=== PATIENT | female | born 1985 | race Caucasian/White ===

== ENCOUNTER 2016-07-05 06:48 | Inpatient (IN) | payer OTHER ==
[~2016-07-05] VITALS: Ht 170.2 cm; Wt 74.0 kg
[~2016-07-05 06:48] MED LIST: DOXY100T PO; Z.0.NO CURRENT MEDS
[2016-07-05] MEDS ORDERED: ACETAMINOPHEN 1000 MG/100 ML VIAL IV ONE ×2 (07:26→09:15)
[2016-07-05] MEDS ORDERED: OXYTOCIN 10 UNIT/ML AMP ONE (07:27)
[2016-07-05] MEDS ORDERED: PREN29TA PO (07:58)
[2016-07-05] MEDS ORDERED: FERR1TAB36 PO (07:58)
[2016-07-05] MEDS ORDERED: ZANTTAB9 PO (08:00)
[2016-07-05] MEDS ORDERED: vitamin C PO (08:00)
[2016-07-05 08:05] LABS: BACTERIA, URINE OCC /hpf; BLOOD, URINE NEG (NEG); COMMENT (UR) CULTURE INDICATED; CULTURE IF INDICATED CULTURE INDICATED; GLUCOSE,URINE NEG (NEG); KETONE, URINE NEG (NEG); MUCUS URINE FEW /lpf (OCC); NITRITE,URINE NEG (NEG); RENAL EPITHELIAL CELLS <1 /hpf; SQUAMOUS EPITHELIAL CELL URINE 4 /hpf (0-5); URINE COLOR YELLOW (YELLW/STRAW)
[2016-07-05 08:07] LABS: AUTOMATED NEUTROPHIL # 6.1 TH/MM3 (1.8-7.7); BASOPHIL % 0.6 % (0.0-2.0); EOSINOPHIL % 0.3 % (0.0-4.0); HEMATOCRIT 32.1 % (35.0-46.0); HEMO FLAGS DIFF FINAL; MEAN CELL VOLUME 89.5 FL (80.0-100.0); MEAN CORPUSCULAR HEMOGLOBIN 31.6 PG (27.0-34.0); MEAN CORPUSCULAR HGB CONC 35.3 % (32.0-36.0); MONO % 7.4 % (0.0-8.0); NEUT % 68.7 % (16.0-70.0); PLATELET COUNT 215 TH/MM3 (150-450); RED BLOOD COUNT 3.59 MIL/MM3 (4.00-5.30); RED CELL DISTRIBUTION WIDTH 14.6 % (11.6-17.2); WHITE BLOOD COUNT 8.9 TH/MM3 (4.0-11.0)
[2016-07-05] MEDS ORDERED: LACTATED RINGER'S 1000 ML IV SCH (08:30)
[2016-07-05] MEDS ORDERED: ceFAZolin 2 GM PREMIX 50 ML IV SCH (08:30)
[2016-07-05] MEDS ORDERED: CITRIC ACID-SODIUM CITRATE LIQ 30 ML UDC PO SCH (08:30)
[2016-07-05] MEDS ORDERED: LACTATED RINGER'S 1000 ML IV ONE (08:30)
--- NOTE | 2016-07-05 09:01 | HHI.HP ---
HPI Chief Complaint Term IUP with posterior marginal previa and bleed x 3 (stable at this time) Date Seen: Jul 05, 2016 Travel History International Travel<30 Days: No Contact w/Intl Traveler<30Days: No Known Affected Area: No History of Present Illness HPI 31 yo wf at 39 weeks with reassuring surveillance throughout --known to have posterior marginal previa vs low lying--but has had three significant bleeds and has been home on bed rest. Compliant and stable at this time with no leaking , bleeding. good movement. No labor at this time. care otherwise uneventful Para: 0 History Past Medical History Medical History: Denies Significant Hx Obstetric History Obstetric History IUI with ARIEL Past Surgical History Surgical History: No Previous Surgery Family History Family History: Negative Social History Alcohol Use: No Tobacco Use: No Substance Abuse: No Allergies-Medications (Allergen,Severity, Reaction): Coded Allergies: No Known Allergies (Verified , 07/05/16) Home Meds Reported Medications Ranitidine (Zantac 75)75 Mg Tab75 Mg PO BID PRN (HEARTBURN) Ref 0 Take 30 to 60 minutes before eating food or drinking beverages that cause heartburn. 07/05/16 [vitamin C] No Conflict Check2 Tab PO DAILY 07/05/16 Ferrous Sulfate (Iron)325 Mg Xwm208 Mg PO DAILY Ref 0 Take 07/05/16 Vit-Iron Carbonyl ( Plus Iron 29-1 mg)1 Tab Tab1 Tab PO DAILY #30 TAB Ref 0 07/05/16 Discontinued Reported Medications Miscellaneous (No Current Meds) Misc 08/14/09 Discontinued Scripts Doxycycline Hyclate 100 mg 100 Mg Fou226 Mg PO BID #14 TAKE UNTIL GONE Prov:RAFAL GARCIA M.D. 08/14/09 Review of Systems General / Constitutional: No: Fever, Weight Gain, Chills, Other Eyes: No: Diploplia, Blurred Vision, Visual changes, Pain, Photophobia HENT: No: Headaches, Vertigo, Lightheadedness Cardiovascular: No: Irregular Rhythm, Chest Pain or Discomfort, Palpitations, Tachycardia, Syncope, Varicosities, Edema, Cyanosis Respiratory: No: Cough, Short of Breath, Other Gastrointestinal: No: Nausea, Vomiting, Diarrhea Genitourinary: No: Decreased Urinary Output, Oliguria Musculoskeletal: No: Limited ROM, Weakness, Cramping, Edema, Pain Skin: No Rash, No Itching, No Dryness, No Lumps, No Change in Pigmentation, No Change in Nails, No Alopecia, No Lesions Neurologic: No: Weakness, Dizziness, Syncope, Focal Abnormalities, Coordination Problem, Headache, Slurred Speech, Seizures Psychiatric: No: Depression, Suicidal Ideations, Homicidal Ideation Endocrine: No: Heat Intolerance, Cold Intolerance, Polydipsia, Polyuria, Other Physical Exam Narrative GENERAL: Well-nourished, well-developed patient. SKIN: Warm and dry. HEAD: Normocephalic and atraumatic. EYES: No scleral icterus. No injection or drainage. ENT: No nasal drainage noted. Mucous membranes pink. Airway patent. NECK: Supple, trachea midline. No JVD. CARDIOVASCULAR: Regular rate and rhythm without murmurs, gallops, or rubs. RESPIRATORY: Breath sounds equal bilaterally. No accessory muscle use. BREASTS: Bilateral exam showed no masses , no retractions, no nipple discharge. ABDOMEN/GI: Abdomen soft, non-tender, bowel sounds present, no rebound, no guarding term fundus EFW 7 pounds category one trip EXTREMITIES: No cyanosis or edema. BACK: Nontender without obvious deformity. No CVA tenderness. NEUROLOGICAL: Awake and alert. Motor and sensory grossly within normal limits. Five out of 5 muscle strength in all muscle groups. Normal speech. Data Data Orders Admit To Inpatient (07/05/16 ) Vital Signs (Adult) .ON ADMISSION (07/05/16 07:25) Activity Oob Ad Tahira (07/05/16 07:25) ^ Heart (07/05/16 07:25) Urinary Catheter Management ROOPA.Q8H (07/05/16 07:25) ^ Preps (07/05/16 07:25) Scd / Lionel / Foot Pump ROOPA.QSHIFT (07/05/16 07:25) ^ Ultrasound For Locatio (07/05/16 07:25) Diet Npo (07/05/16 Breakfast) Type And Screen (07/05/16 07:25) Complete Blood Count With Diff (07/05/16 07:25) Urinalysis - C+S If Indicated (07/05/16 07:25) Specimen To Be Collected PRN (07/05/16 07:25) Acetaminophen Inj (Ofirmev Inj) (07/05/16 07:26) Oxytocin Inj (Pitocin Inj) (07/05/16 07:27) Urine Culture (07/05/16 07:35) Lactated Ringer's 1000 Ml Inj (Lr 1000 M (07/05/16 08:30) Lactated Ringer's 1000 Ml Inj (Lr 1000 M (07/05/16 08:30) Citric Acid-Sodium Citrate Liq (Bicitra (07/05/16 08:30) Cefazolin 2 Gm Premix (Ancef 2 Gm Premix (07/05/16 08:30) Labs Laboratory Tests Test 07/05/16 07:35 White Blood Count 8.9 Red Blood Count 3.59 Hemoglobin 11.3 Hematocrit 32.1 Mean Corpuscular Volume 89.5 Mean Corpuscular Hemoglobin 31.6 Mean Corpuscular Hemoglobin 35.3 Concent Red Cell Distribution Width 14.6 Platelet Count 215 Mean Platelet Volume 8.7 Neutrophils (%) (Auto) 68.7 Lymphocytes (%) (Auto) 23.0 Monocytes (%) (Auto) 7.4 Eosinophils (%) (Auto) 0.3 Basophils (%) (Auto) 0.6 Neutrophils # (Auto) 6.1 Lymphocytes # (Auto) 2.0 Monocytes # (Auto) 0.7 Eosinophils # (Auto) 0.0 Basophils # (Auto) 0.0 CBC Comment DIFF FINAL Differential Comment Urine Color YELLOW Urine Turbidity HAZY Urine pH 6.0 Urine Specific [place] 1.019 Urine Protein TRACE Urine Glucose (UA) NEG Urine Ketones NEG Urine Occult Blood NEG Urine Nitrite NEG Urine Bilirubin NEG Urine Urobilinogen LESS THAN 2.0 Urine Leukocyte Esterase LARGE Urine RBC 24 Urine WBC 162 Urine Squamous Epithelial 4 Cells Urine Renal Epithelial Cells <1 Urine Amorphous Sediment RARE Urine Bacteria OCC Urine Mucus FEW Microscopic Urinalysis Comment CULTURE INDICATED Blood Type O NEGATIVE Antibody Screen NEGATIVE Date/Time Procedure Status Source Growth 07/05/16 07:35 Urine Culture Received Urine Clean Catch Pending Assessment/Plan Assessment and Plan primary section today routine Post operative care has been counseled in depth Teressa Hicks MD Jul 05, 2016 09:01
[2016-07-05] MEDS ORDERED: EPIDURAL-NO SYSTEMIC NARCOTICS XX PRN (09:02)
[2016-07-05] MEDS ORDERED: EPIDURAL-DIPHENHYDRAMINE HCL 50 MG/ML VIAL IV PUSH PRN (09:02)
[2016-07-05] MEDS ORDERED: EPIDURAL-NALOXONE HCL 0.4 MG/ML AMP IV PRN (09:02)
[2016-07-05] MEDS ORDERED: EPIDURAL-DIPHENHYDRAMINE HCL 50 MG CAP PO PRN (09:02)
[2016-07-05] MEDS ORDERED: EPIDURAL-DO NOT ADMINISTER ANTICOAGULANTS XX PRN (09:02)
[2016-07-05] MEDS ORDERED: SIMETHICONE 80 MG CHEWABLE TAB PO PRN (09:15)
[2016-07-05] MEDS ORDERED: LACTATED RINGER'S 1000 ML INJ 1,000 ML IV ONE (09:15)
[2016-07-05] MEDS ORDERED: OXYTOCIN 30 UNITS-500ML PREMIX 500 ML IV ONE (09:15)
[2016-07-05] MEDS ORDERED: ZOLPIDEM TARTRATE 5 MG TAB PO PRN (09:15)
[2016-07-05] MEDS ORDERED: SODIUM CHLORIDE 0.9% FLUSH 5 ML FLUSH IV PRN (09:15)
[2016-07-05] MEDS ORDERED: oxyCODONE/ACETAMINOPHEN 5 MG/325 MG TAB PO PRN (09:15)
[2016-07-05] MEDS ORDERED: ONDANSETRON HCL 4 MG/2 ML VIAL IV PUSH PRN (09:15)
--- NOTE | 2016-07-05 09:49 | PD.OB.DELI ---
Procedure Note Section Procedure Pre Op Diagnosis term, posterior marginal previa worrisome nevus on abdomen Post Op Diagnosis: Post Op Diagnosis same, complete posterior previa delivered nevus excised Performed by Teressa Hicks Procedure: Primary Low Transverse Sec Indication for delivery: Other (posterior complete previa) Informed consent obtained: For anesthesia, For procedure, Other Confirmed correct: Patient, Procedure, Site, Time-out taken Anesthesia: Spinal Medication prior to procedure: As documented in eMAR Monitoring during procedure: Blood pressure monitoring, Pulse oximetry Urinary catheter: Inserted using sterile technique, To dependent drainage Sterile preparation: Duraprep, In usual fashion Position: Supine with wedge to right side Operative Features Uterine Incision: Low transverse w/knife / blunt ext Membranes Ruptured: Artificially Presentation: Occiput anterior Delivery of infant: Assisted Infant: Single One Minute : 9 Five Minute : 9 Weight: 7 11 Status of : Viable, Cord blood Placenta delivered: Intact, Other (to [facility]im[facility]) Medications: Antibiotics, Oxytocin Estimated blood loss: 500 Procedure tolerated: Well Maternal Condition: Stable Condition: Stable (dictated) Teressa Hicks MD Jul 05, 2016 09:49
[2016-07-05] MEDS ORDERED: ONDANSETRON HCL 4 MG/2 ML VIAL ONE (10:01)
[2016-07-05] MEDS ORDERED: MORPHINE SULFATE PF 5 MG/10 ML VIAL ONE (10:02)
[2016-07-05] MEDS ORDERED: OXYTOCIN 30 UNITS-500ML PREMIX 500 ML ONE (10:58)
[2016-07-05] MEDS ORDERED: KETOROLAC TROMETHAMINE 30 MG/ML (IVP) VIAL ONE ×2 (11:13→11:14)
[2016-07-05] MEDS ORDERED: KETOROLAC TROMETHAMINE 60 MG/2 ML (IM) VIAL IM ONE (13:00)
[2016-07-05] MEDS ORDERED: KETOROLAC TROMETHAMINE 30 MG/ML (IVP) VIAL IV PUSH ONE (13:00)
[2016-07-05] MEDS ORDERED: LACTATED RINGER'S 1000 ML INJ 1,000 ML IV SCH (14:01)
[2016-07-05] MEDS ORDERED: OXYTOCIN 30 UNITS-500ML PREMIX 500 ML IV PRN (19:15)
[2016-07-05] MEDS ORDERED: SODIUM CHLORIDE 0.9% FLUSH 5 ML FLUSH IV SCH (21:00)
[2016-07-05] MEDS: oxyCODONE/ACETAMINOPHEN 5 MG/325 MG TAB PO PRN (21:56)
[2016-07-06] MEDS: oxyCODONE/ACETAMINOPHEN 5 MG/325 MG TAB PO PRN ×5 (01:49→19:56)
[2016-07-06 06:02] LABS: AUTOMATED NEUTROPHIL # 6.5 TH/MM3 (1.8-7.7); BASOPHIL % 0.2 % (0.0-2.0); EOSINOPHIL # 0.1 TH/MM3 (0-0.4); EOSINOPHIL % 0.7 % (0.0-4.0); HEMO FLAGS DIFF FINAL; LYMPH % 21.6 % (9.0-44.0); MEAN CELL VOLUME 91.8 FL (80.0-100.0); MEAN CORPUSCULAR HEMOGLOBIN 31.7 PG (27.0-34.0); MEAN CORPUSCULAR HGB CONC 34.5 % (32.0-36.0); MONO % 6.3 % (0.0-8.0); NEUT % 71.2 % (16.0-70.0); PLATELET COUNT 196 TH/MM3 (150-450); RED BLOOD COUNT 3.27 MIL/MM3 (4.00-5.30); RED CELL DISTRIBUTION WIDTH 14.9 % (11.6-17.2); WHITE BLOOD COUNT 9.2 TH/MM3 (4.0-11.0)
[2016-07-06] MEDS ORDERED: VITA100T5 PO (10:02)
[2016-07-06] MEDS: DOCUSATE SODIUM 50 MG/SENNA 8.6 MG TAB PO PRN (10:11)
--- NOTE | 2016-07-06 12:34 | HHI.OB ---
Subjective Post Operative Day: 1 Remarks s/p primary LTCD for marginal previa at term Objective Vitals/I&O Vital Signs Date Time Temp Pulse Resp B/P Pulse Ox O2 Delivery O2 Flow Rate FiO2 07/06/16 11:13 20 Result Diagram: 07/06/16 0535 Objective Remarks GENERAL: Well-nourished, well-developed patient. CARDIOVASCULAR: Regular rate and rhythm without murmurs, gallops, or rubs. RESPIRATORY: Breath sounds equal bilaterally. No accessory muscle use. ABDOMEN/GI: Abdomen soft, non-tender, bowel sounds present. Incision: Clean, dry and intact. has incision from "mole removed" above & to the right of umbilicus; steri-strips in place; pfannenstiel incision c/d/i as well Fundus: Firm, non-tender at umbilicus. GENITOURINARY: Light to moderate bleeding. EXTREMITIES: No cyanosis or edema, non-tender, without signs of DVT. Medications and IVs Current Medications Medications (Trade) Dose Ordered Sig/Reina Route Start Time Stop Time Status Last Admin (Lr 1000 ml Inj) 1,000 ml @ 150 mls/hr Q6H40M IV 07/05/16 08:30 07/05/16 08:36 (NS Flush) 2 ml BID IV 07/05/16 21:00 (NS Flush) 2 ml UNSCH PRN IV 07/05/16 09:15 (Mylicon Chew) 80 mg QID PRN PO 07/05/16 09:15 (Percocet 5-325 Mg) 1 tab Q4H PRN PO 07/05/16 09:15 07/05/16 17:06 (Percocet 5-325 Mg) 2 tab Q4H PRN PO 07/05/16 09:15 07/06/16 10:09 (Eloina-Colace) 2 tab Q12H PRN PO 07/05/16 09:15 07/06/16 10:11 (Ambien) 5 mg HS PRN PO 07/05/16 09:15 (M-M-R Ii Inj) 0.5 ml ONCE ONCE SQ 07/06/16 16:00 07/06/16 16:01 (Boostrix Inj) 0.5 ml ONCE ONCE IM 07/06/16 16:00 07/06/16 16:01 (Zofran Inj) 4 mg Q6H PRN IV PUSH 07/05/16 09:15 Assessment/Plan Assessment and Plan POD#1 s/p LTCD for marginal previa at term - routine postop care - ambulate, shower, support - routine d/c planning - office f/u in 1-[address] Hicks Discharge Planning routine Bailey Peterson MD Jul 06, 2016 12:34
[2016-07-06] MEDS ORDERED: SENN1TAB PO (12:36)
[2016-07-06] MEDS ORDERED: OXYC1TAB63 PO (12:36)
[2016-07-06] MEDS ORDERED: IBUP-232 PO (12:36)
[2016-07-06] MEDS: IBUPROFEN 600 MG TAB PO PRN ×2 (14:40→19:56)
[2016-07-06 15:48] VITALS: RESP 18
[2016-07-06] MEDS ORDERED: DIPHTH/TETANUS/ACEL PERTUSSIS (BOOSTER) 0.5 ML VIAL/PFS IM ONE (16:00)
[2016-07-06] MEDS ORDERED: MEASLES, MUMPS, RUBELLA VACCINE 0.5 ML VIAL SQ ONE (16:00)
[2016-07-07] MEDS: DOCUSATE SODIUM 50 MG/SENNA 8.6 MG TAB PO PRN ×2 (01:08→12:17)
[2016-07-07] MEDS: oxyCODONE/ACETAMINOPHEN 5 MG/325 MG TAB PO PRN ×3 (01:09→12:17)
[2016-07-07] MEDS: IBUPROFEN 600 MG TAB PO PRN ×3 (01:09→12:16)
--- NOTE | 2016-07-07 07:23 | HHI.OB ---
Subjective Post Operative Day: 2 Remarks doing great with nursing baby ready for discharge slight oozing from one edge of incision last night cleaned and none now Objective Vitals/I&O Vital Signs Date Time Temp Pulse Resp B/P Pulse Ox O2 Delivery O2 Flow Rate FiO2 07/06/16 15:48 18 07/06/16 15:48 18 Result Diagram: 07/06/16 0535 Objective Remarks GENERAL: Well-nourished, well-developed patient. CARDIOVASCULAR: Regular rate and rhythm without murmurs, gallops, or rubs. RESPIRATORY: Breath sounds equal bilaterally. No accessory muscle use. ABDOMEN/GI: Abdomen soft, non-tender, bowel sounds present. Incision: Clean, dry and intact. has incision from "mole removed" above & to the right of umbilicus; steri-strips in place; pfannenstiel incision c/d/i as well Fundus: Firm, non-tender at umbilicus. GENITOURINARY: Light to moderate bleeding. EXTREMITIES: No cyanosis or edema, non-tender, without signs of DVT. Medications and IVs Current Medications Medications (Trade) Dose Ordered Sig/Reina Route Start Time Stop Time Status Last Admin (Lr 1000 ml Inj) 1,000 ml @ 150 mls/hr Q6H40M IV 07/05/16 08:30 07/05/16 08:36 (NS Flush) 2 ml BID IV 07/05/16 21:00 (NS Flush) 2 ml UNSCH PRN IV 07/05/16 09:15 (Mylicon Chew) 80 mg QID PRN PO 07/05/16 09:15 07/06/16 19:55 (Percocet 5-325 Mg) 1 tab Q4H PRN PO 07/05/16 09:15 07/05/16 17:06 (Percocet 5-325 Mg) 2 tab Q4H PRN PO 07/05/16 09:15 07/07/16 06:31 (Eloina-Colace) 2 tab Q12H PRN PO 07/05/16 09:15 07/07/16 01:08 (Ambien) 5 mg HS PRN PO 07/05/16 09:15 (Zofran Inj) 4 mg Q6H PRN IV PUSH 07/05/16 09:15 (Motrin) 600 mg Q6H PRN PO 07/06/16 14:10 07/07/16 06:30 Assessment/Plan Assessment and Plan POD 2 home today RTO 1 week counseled Discharge Planning routine Teressa Hicks MD Jul 07, 2016 07:23
[2016-07-07] MEDS ORDERED: OXYC1TAB63 PO (07:25)
--- NOTE | 2016-07-07 07:25 | HHI.DCPOC ---
Discharge Care Plan Report Symptoms to Your Doctor -Temperate above 100.5 degrees -Redness, of incision or excessive or foul smelling drainage -Unusual pain or calf pain -Increased vaginal bleeding -Painful or difficulty urinating -Feelings of extreme sadness or anxiety after 2 weeks Goals to Promote Your Health * To prevent worsening of your condition and complications * To maintain your health at the optimal level Directions to Meet Your Goals Take your medications as prescribed Follow your dietary instruction Follow activity as directed Ensure plenty of rest for recovery Drink fluids for hydration Keep your appointments as scheduled Take your immunizations and boosters as scheduled If your symptoms worsen call your PCP, if no PCP go to Urgent Care Center or Emergency Room Smoking is Dangerous to Your Health. Avoid second hand smoke Call the 24-hour crisis hotline for domestic abuse at Teressa Hicks MD Jul 07, 2016 07:25
[2016-07-07] MEDS ORDERED: diphenhydrAMINE HCL 50 MG CAP PO PRN (10:45)
--- NOTE | 2016-07-09 08:51 | MP ---
cc: TERESSA ZIMMERMAN M.D. DATE OF 1985 DATE OF DELIVERY July 05, 2016 PREOPERATIVE DIAGNOSES 1. Term with posterior marginal praevia. 2. Worrisome nevus is on the abdomen. POSTOPERATIVE DIAGNOSES 1. Term with a complete posterior praevia. 2. Worrisome nevus. 3. Delivered. PROCEDURE Primary low transverse segment section and excision of nevus on anterior abdominal wall. ANESTHESIA Spinal with Duramorph. SURGEON MD Fabiola [employer] staff. FINDINGS A living female weighing 7 pounds, 11 ounces was delivered from [place] with clear fluid and a body cord. Her Apgars were 9 at one and 9 at five. Cord was left pulsing for a good 45 seconds. The placenta went to . The placenta was indeed over the entire os and there were quite a few varicosities in the lower uterine segment but these were addressed quickly with no extra bleeding. The nevus was excised at the end of the case and sent for pathology. Sponge, instrument and needle count were correct and she tolerated the procedure well. PROCEDURE The patient was identified as Liya Gordillo. This was an elective procedure and she was counseled with her partner thoroughly in the office about risks, benefits, expectations, alternatives, which really we did not feel we had. She was taken to the operating room, given a spinal with Duramorph, placed in dorsal supine position with weight off the vena cava. She had sequential stockings on. She had a Sweeney catheter placed. She was given 2 grams of Ancef prior to the procedure. We reviewed at the time out that she wanted to have a nevus removed from her anterior abdominal wall. After she was prepped and draped in the usual sterile fashion, she was checked for analgesia, her partner was brought in and then a Pfannenstiel incision was made with a knife and carried down through to the rectus fascia with the Bovie on cutting. Then the rectus fascia was incised and taken off the rectus muscle. The rectus muscle was in the midline. The parietal peritoneum was entered sharply and a bladder flap was created off the lower uterine segment. There was a large amount of varicosities on the anterior lower uterine segment and care was taken to try and placed the initial incision into the uterus away from these. A finger was placed into the intrauterine cavity and a vertical blunt incision was made. This did incur significant bleeding quickly, but it was tamponaded very quickly after the baby was born. A Kiwi was used for expediency to deliver the baby and her cord was clamped x 2 and cut after 45 seconds and she was handed off to the neonatology team in attending. The placenta was quickly delivered and found to be a complete praevia. At this point the uterus clamped down very quickly and a rapid closure in a horizontal imbricating suture was done on the uterus. Then the second horizontal imbricating layer intentionally incorporated the large varicosities to tie them off. After two layers were closed, the uterus was placed in the peritoneal cavity and watched very carefully for any signs of hematoma development. There was none. Irrigation was performed, then the rectus muscle was approximated with a running stitch to incorporate the peritoneal cavity. The subcutaneous layer was closed with 3-0 plain. The skin was closed with 4-0 Vicryl on a Saeid needle. Then attention was directed, after a Primapore dressing, to the small nevus just above the umbilicus and this was excised in elliptical fashion with about 4 or 5 mm in a teardrop fashion around the entire lesion. This was sent to pathology and the area was closed with 4-0 Monocryl on a SH needle and Steri-Strips applied. Estimated blood loss was average. Sponge, instrument and needle count were correct. She tolerated the procedure well, the baby did well and they went to the recovery room stable. Teressa Zimmerman MD PPC/SSB /9:53 AM /8:37 AM
== END 2016-07-07 15:45 | disposition home or self-care (01) | DRG 766 ==
LOC: H2EB 06:48 → H1EA 11:38
PROVIDERS: ADMIT Obstetrics & Gynecology; ATTEND Obstetrics & Gynecology
PROC: 10D00Z1 Extraction of Products of Conception, Low, Open Approach (ICD-10-PCS; principal; 2016-07-05)
PROC: 0HB7XZZ Excision of Abdomen Skin, External Approach (ICD-10-PCS; 2016-07-05)
DX: O44.00 Complete placenta previa NOS or without hemorrhage, unspecified trimester (principal); D22.5 Melanocytic nevi of trunk; Z37.0 Single live birth; Z3A.39 39 weeks gestation of pregnancy; I86.2 Pelvic varices
CPT/HCPCS: 59025; 81001; 85025; 85461; 86850; 86900; 86901; 87086; 88304; 88305; 90384; J0131; J0690; J1885; J2274; J2405; J2590; J2790; J7120; Q0163